=== PATIENT | male | born 1950 | race Caucasian/White ===

== ENCOUNTER 2018-04-15 22:50 | Emergency (ER) | payer MEDICARE ==
[2018-04-15] MEDS ORDERED: ONDANSETRON HCL IV 4 MG/2 ML VIAL IV ONE (23:05)
--- NOTE | 2018-04-15 23:13 | Emergency Department Record ---
History of Present Illness - General Chief complaint: Flank Pain Stated complaint: SIDE/FLANK PAIN,BLOOD IN URINE Time Seen by Provider: 04/15/18 23:02 Source: Patient Mode of Arrival: Ambulatory Limitations: No limitations - History of Present Illness Initial comments: The patient is here due to R flank pain off and on for about 12 hours. He has had hematuria for about 3-4 weeks and it did get worse today. There has been no fever, chills, vomiting, diarrhea, or L sided AP but the patient has been nauseated. He has seen his PCP for it this week and did have a UA and lab tests done but does not know the result. MD Complaint: Dysuria, Other Onset/Timin -: Hour(s) Location: Right flank Radiation: R flank Severity scale (1-10): 7 Quality: Aching Consistency: Intermittent Improves with: None Worsens with: None Reports: Blood in urine - Related Data Sexually active: No Home Medications Medication Instructions Recorded Confirmed Last Taken Glipizide [Glucotrol] 2.5 mg PO QPM 04/15/18 04/15/18 Unknown Losartan Potassium [Cozaar] 50 mg PO DAILY 04/15/18 04/15/18 04/15/18 Metformin HCl [Glucophage] 850 mg PO BID 04/15/18 04/15/18 04/15/18 Pioglitazone HCl [Actos] 30 mg PO DAILY 04/15/18 04/15/18 04/15/18 Simvastatin [Zocor] 20 mg PO QPM 04/15/18 04/15/18 Unknown Allergies Allergy/AdvReac Type Severity Reaction Status Date / Time No Known Drug Allergies Allergy Verified 04/15/18 22:53 Travel Screening - Travel/Exposure Within Last 30 Days Have you traveled within the last 30 days?: No - Travel Symptoms Symptom Screening: None Review of Systems Constitutional: Denies: Chills, Fever Eyes: Denies: Eye discharge ENT: Denies: Congestion Respiratory: Denies: Cough, Dyspnea Cardiovascular: Denies: Arrhythmia Endocrine: Denies: Fatigue Gastrointestinal: Reports: Abdominal pain, Nausea Genitourinary: Reports: Hematuria. Denies: Dysuria Musculoskeletal: Reports: Back pain. Denies: Arthralgia Skin: Denies: Bruising Past Medical History - SOCIAL HISTORY Smoking Status: Former smoker Alcohol Use: Rare Drug Use: None - RESPIRATORY Hx Respiratory Disorders: No - CARDIOVASCULAR Hx Cardio Disorders: Yes Hx Hypertension: Yes - NEURO Hx Neuro Disorders: No - GI Hx GI Disorders: No - Hx Genitourinary Disorders: No - ENDOCRINE Hx Endocrine Disorders: Yes Hx Diabetes: Yes (DMII) - MUSCULOSKELETAL Hx Musculoskeletal Disorders: Yes - PSYCH Hx Psych Problems: No - HEMATOLOGY/ONCOLOGY Hx Hematology/Oncology Disorders: No Family Medical History Any Significant Family History?: Yes Hx Cancer: Mother Hx Dementia: Mother *Dementia Comment: Alzheimer's Hx Diabetes: Father, Mother, Grandparents Physical Exam - General General Appearance: Alert, Oriented x3, Cooperative, No acute distress - Head Head exam: Normocephalic, Normal inspection - Eye Eye exam: Normal appearance, PERRL - ENT Throat exam: Normal inspection. negative: Tonsillar erythema, Tonsillar exudate - Neck Neck exam: Normal inspection, Full ROM. negative: Tenderness - Respiratory Respiratory exam: Normal lung sounds bilaterally. negative: Respiratory distress - Cardiovascular Cardiovascular Exam: Regular rate, Normal rhythm, Normal heart sounds - GI/Abdominal GI/Abdominal exam: Soft, Normal bowel sounds. negative: Guarding, Pulsatile mass, Rebound, Tenderness - Extremities Extremities exam: Normal inspection, Full ROM, Normal capillary refill. negative: Tenderness - Back Back exam: Reports: Normal inspection, CVA tenderness (R) (mild.) - Neurological Neurological exam: Alert, Normal gait. negative: Abnormal gait, Motor sensory deficit - Psychiatric Psychiatric exam: negative: Anxious - Skin Skin exam: negative: Rash Course Vital Signs 04/15/18 22:54 Temperature 97.7 F Pulse Rate 76 Respiratory 18 Rate Blood Pressure 202/87 Pulse Ox 97 - Reevaluation(s) Reevaluation #1: The patient is doing better at this time. He denies any pain or nausea and did urinate again in the ED and did pass a blood clot. He stated his urine did clear up a bit after passing the clot. The patient states this has been happening for about [address] does not demonstrate a definite ureter stone but there is a hyperdensity in the proximal R ureter and a Retrograde pyelogram was recommended. 04/16/18 00:09 Reevaluation #2: The patient states the pain did return and he began to vomit. Due to the amount of urinary bleeding and now the pain and nausea I did recommend transfer to [facility] where his physicians are located. I did discuss the case with Dr. Thornton who is the hospitalist at [facility] in [place] and he did accept the patient as a direct admission. 04/16/18 00:29 04/16/18 00:57 Medical Decision Making - Data Complexity MDM Data: Labs Ordered and/or Reviewed, X-Ray Ordered and/or Reviewed - Lab Data Result diagrams: 04/15/18 23:15 04/15/18 23:15 - Radiology Data Radiology results: Report reviewed (Abd CT: R sided proximal mild hydro with hyperdensity in ureter, poss. blood. Rec:Retrograde pyelogram.) Disposition Disposition: Transfer Clinical Impression: Ureter colic Disposition: Acute Care Hospital Transfer Transfer To: [facility] Reason For Transfer: Urology Accepting Physician: HUONG Time Discussed w/Accepting Physician: 00:31 Condition: (2) Stable Forms: Patient Portal Access Time of Disposition: 00:31 Quality - Quality Measures Quality Measures: N/A - Blood Pressure Screening View Details: Yes Does Patient Have Any of the Following: Active Dx of HTN Blood Pressure Classification: Pre-Hypertensive BP Reading Systolic Measurement: 202 Diastolic Measurement: 87 Screening for High Blood Pressure: Patient Exclusion, Hx of HTN [G9744]
[2018-04-15] MEDS ORDERED: 0.9 % SODIUM CHLORIDE 1,000 ML BAG IV ONE (23:18)
[2018-04-15 23:24] LABS: BASO % 0.4 % (0-6); EOS % 1.8 % (0-6); GRAN % 61.7 % (47-80); HEMATOCRIT 40.8 % (42.0-52.0); HEMOGLOBIN 13.4 gm/dl (14.0-18.0); MEAN CELL VOLUME 94.7 fl (81-97); MEAN CORPUSCULAR HGB CONC 32.8 g/dl (32-36); MEAN PLATELET VOLUME 10.2 fl (7.4-10.4); MONO % 8.1 % (0-9); PLATELET COUNT 287 K/uL (130-400); RED BLOOD COUNT 4.31 M/uL (4.40-5.70); RED CELL DISTRIBUTION WIDTH 13.3 % (11.5-14.5); WHITE BLOOD COUNT W/O DIFF 13.3 K/uL (4.2-12.2)
[2018-04-15 23:31] LABS: URINE APPEARANCE TURBID; URINE BILIRUBIN SMALL (NEGATIVE); URINE BLOOD LARGE (NEGATIVE); URINE COLOR RED; URINE GLUCOSE (UA) NEGATIVE (NEGATIVE); URINE KETONE TRACE (NEGATIVE); URINE LEUKOCYTE ESTERASE NEGATIVE (NEGATIVE); URINE NITRITE POSITIVE (NEGATIVE); URINE UROBILINOGEN 0.2 E.U./dL (0.20 - 1.00)
[2018-04-15 23:32] LABS: CREATININE 1.5 mg/dL (0.7-1.2)
[2018-04-15 23:36] LABS: URINE PROTEIN 300 mg/dL (NEGATIVE)
[2018-04-15 23:37] LABS: URINE EPITHELIAL CELLS NONE SEEN (FEW); URINE WBC NONE SEEN (0-2/hpf)
[2018-04-15 23:38] LABS: URINE BACTERIA FEW
[2018-04-16] MEDS ORDERED: CIPROFLOXACIN HCL 500 MG TABLET PO ONE (00:05)
[2018-04-16] MEDS ORDERED: ONDANSETRON HCL IV 4 MG/2 ML VIAL IVP ONE (00:14)
[2018-04-16] MEDS ORDERED: ACETAMINOPHEN 1,000 MG/100 ML BTL IVPB ONE (00:15)
--- NOTE | 2018-04-17 13:17 | CT SCAN REPORT ---
EXAM: NONCONTRAST CT OF THE ABDOMEN AND PELVIS HISTORY: RIGHT SIDED FLANK PAIN AND HEMATURIA. TECHNIQUE: Noncontrast CT of the abdomen and pelvis was obtained. Comparison: None. FINDINGS: Minor bibasilar atelectasis. The gallbladder is contracted. Unremarkable noncontrast appearance of the liver, spleen, and adrenal glands. Diffuse fatty atrophy of the pancreas. Mild right hydronephrosis. Hyperdense appearance of the right upper pole calices. There is also an approximate 21 mm segment of increased density in the proximal right ureter (coronal series image 87). No definite calculi are visualized. No definite renal mass on this noncontrast study. The left renal collecting system is nondilated. The urinary bladder is only minimally distended, no obvious abnormality by noncontrast CT. No focal colonic thickening of inflammatory changes. Normal appendix. The stomach and small bowel are nondilated. No mesenteric or retroperitoneal adenopathy detected. The aortoiliac arterial access is calcified and nondilated. No acute or aggressive focal osseous abnormalities are detected. There is mild retrolisthesis of L4-L5 with disk height loss and vacuum cleft involving the L4- L5 disk space. Grade 1 anterolisthesis of L5-S1 with suggestion of chronic bilateral L5 pars defects and possible bridging ossification between the L5 and S1 bodies. IMPRESSION: 1. MILD RIGHT SIDED HYDRONEPHROSIS. HYPERDENSE APPEARANCE OF THE RIGHT UPPER POLE CALICES WELL A SHORT SEGMENT OF THE PROXIMAL RIGHT URETER; THIS MAY REPRESENT BLOOD PRODUCTS WITHIN THE COLLECTING SYSTEM ALTHOUGH A SOFT TISSUE MASS COULD HAVE A SIMILAR APPEARANCE ON THIS NONCONTRAST EXAMINATION. NO RADIODENSE CALCULI ARE DETECTED. UROLOGIC CONSULTATION IS RECOMMENDED. 2. ADDITIONAL INCIDENTAL AND CHRONIC FINDINGS ARE DISCUSSED IN THE BODY OF THE REPORT. JOB NUMBER: [id number] [facility]
== END 2018-04-16 01:10 | disposition short-term general hospital (02) ==
LOC: ER 22:50
DX: N13.2 Hydronephrosis with renal and ureteral calculous obstruction (principal); R31.0 Gross hematuria; R11.2 Nausea with vomiting, unspecified; I10 Essential (primary) hypertension; Z87.891 Personal history of nicotine dependence
CPT/HCPCS: 99285 ×2; 96376; 96365; 96375; 96361; 85025; 80048; 81001; 74176; J2405 ×2; J7030